=== PATIENT | female | born 1965 | race Caucasian/White ===

== ENCOUNTER → 2024-03-27 14:17 | Outpatient (REF) | payer SELFPAY | LOC: RAD 14:17 | PROVIDERS: ATTENDING PHYSICIAN Internal Medicine | DX: E78.01 Familial hypercholesterolemia (principal); R91.8 Other nonspecific abnormal finding of lung field | CPT/HCPCS: 75571 ==

== ENCOUNTER → 2024-04-23 06:53 | Outpatient (REF) | payer OTHER, SELFPAY | LOC: RSP 06:53 | PROVIDERS: ATTENDING PHYSICIAN Internal Medicine; FAMILY PHYSICIAN Family Medicine | DX: J18.9 Pneumonia, unspecified organism (principal); R91.8 Other nonspecific abnormal finding of lung field | CPT/HCPCS: 94727; 94729; 88738; 94010 ==

== ENCOUNTER 2025-04-16 09:29 | Emergency (ER) | payer OTHER, SELFPAY ==
--- NOTE | 2025-04-16 09:35 | ED.GENMED ---
History of Present Illness
General
Chief Complaint: Blood Pressure Problem
Time Seen by Provider: 04/16/25 09:35
History of Present Illness
History of Present Illness:
TIME OF INITIAL ENCOUNTER: 9:35 AM
HPI: The patient comes in due to concerns of high blood pressure readings. At home her blood pressure readings were over 200. She has no specific symptoms other than some left lateral neck discomfort. She has no chest pain. She is to be on blood
pressure medication but no longer takes it citing that she does not want to be on blood pressure medication and switch to herbal medication. She has no headache or lightheadedness. She has no neurologic symptoms.
EXAM:
GENERAL: Well appearing in no distress, she is hypertensive
HEENT: Moist oral mucosa
CARDIOVASCULAR: No murmurs, normal heart rate, regular rhythm, No chest wall tenderness
PULMONARY: No respiratory distress, breath sounds are clear and equal
ABDOMEN: Soft with no peritoneal signs, no tenderness
NEUROLOGIC: Excellent strength all extremities, no coordination deficits
PSYCHIATRIC: Appropriate mental status, normal insight and judgement
EXTREMITIES: Nontender, no edema, moves all extremities equally
SKIN: No rash, no lesions
NUMBER AND COMPLEXITY OF PROBLEMS ADDRESSED AT THE ENCOUNTER
� Chronic conditions affecting care: High blood pressure, asthma
� Acute Exacerbation and/or Progression of Chronic Illness: This is an acute problem
� Differential Diagnosis includes: Untreated high blood pressure, medication noncompliance, essential hypertension, kidney disease
AMOUNT AND/OR COMPLEXITY OF DATA TO BE REVIEWED AND ANALYZED
� I performed an independent evaluation of and my interpretation is:
EKG: Baseline artifact, rate of 85, nonspecific ST abnormality
CT:
X-rays:
Laboratory Studies: CBC and chemistries unremarkable. Troponin less than 0.012
Other:
� Review of other/old records: The patient had PFTs which were normal 1 year ago.
� Clinical information was obtained by an independent historian:
� Prescriptions/Medications Considered but not given:
� Further testing considered but not performed:
RISK OF COMPLICATIONS AND/OR MORBIDITY OR MORTALITY OF PATIENT MANAGEMENT
� Social determinants of health affecting care: Lives at home
� Discussion with other providers:
� Escalation of care including admission/observation vs risk of discharge considered: I personally took manual blood pressure and was confirmed to be 230/130. However the patient has minimal symptoms currently. She is
well-appearing. She stopped taking her amlodipine and HCTZ citing side effects including dizziness. Her blood pressure has improved after IV labetalol was given. Will start losartan.
ANY OTHER UPDATES:
Past History
Past History
ED Past Medical History: Asthma and HTN
Social History
Tobacco: Non-smoker
Personal:
Living: with family
Family History
Family History: CAD
Phy Exam
Physical Exam
Physical Exam:
See HPI
Course
Orders/Labs/Results
Orders:
Orders
04/16/25 09:33
ECG [Electrocardiogram (*1)] Urgent
Reason for Study: Chest Pain
Other Reason for Exam: L sided neck pain
04/16/25 09:34
EKG- Treatment ONCE
04/16/25 09:45
EKG- Treatment ONCE
Labetalol HCl [Trandate] 10 mg IV NOW STA
04/16/25 10:05
Complete Blood Count/With Diff Urgent
Comprehensive Metabolic Panel Urgent
Troponin I Urgent
04/16/25 10:38
Losartan [Cozaar] 50 mg PO NOW STA
Abnormal Lab Results
04/16/25
10:05
MPV 12.0 H fL
(7.4-10.4)
Absolute Monos (auto) 0.7 H 10^3/uL
(0.1-0.6)
Chloride 110 H mmol/L
(98-107)
Glucose 124 H mg/dl
(70-99)
Total Protein 8.4 H g/dl
(6.3-8.2)
04/16/25 10:05
04/16/25 10:05
Vital Signs
Blood pressure: 230/130 (manual)
Initial and Last Documented VS:
Initial Vital Signs
Temp Pulse Resp Pulse Ox
37.2 C 89 16 99
04/16/25 09:30 04/16/25 09:30 04/16/25 09:30 04/16/25 09:30
Last Documented Vital Signs
Temp Pulse Resp BP Pulse Ox
37.2 C 67 14 187/105 97
04/16/25 09:30 04/16/25 12:02 04/16/25 12:02 04/16/25 12:02 04/16/25 12:02
*Critical Care Note
Total Time (30-74mins, 75-104mins- exclusive of procedures): Not Applicable
ED Attending Note
-
Portions of this chart may have been created with voice recognition software.� Occasional wrong word or��sound alike� substitutions may have occurred due to the inherent limitations of voice recognition software.
Discharge Plan
Departure
Patient Disposition: Home (Routine Discharge)
Date of Disposition: 04/16/25
Time of Disposition: 10:55
Patient with high blood pressure during this ER visit?: Yes
Discharge Problem:
High blood pressure
Instructions: High Blood Pressure (DC), BLOOD PRESSURE
Prescriptions:
New
losartan 50 mg tablet
50 mg PO DAILY Qty: 30 0RF
No Action
ibuprofen [Advil Liqui-Gel] 200 MG capsule
400 mg PO PRN PRN (Reason: pain)
Blood Pressure Meds
1 tab PO DAILY
Patient Comments:
pt doesn't know the names
Norvasc:
1 tab PO DAILY
Referrals:
Simone Klein MD [Family Provider] -
Activity Restrictions/Additional Instructions:
Your initial manual blood pressure was 230/130. I strongly recommend that you resume blood pressure medication. We gave you an IV dose of labetalol 10 mg which brought the blood pressure down to 187 systolic. I do not want to abruptly drop your
blood pressure all the way back down to normal as that can also be dangerous. I am sending a prescription for losartan to your pharmacy. Next dose tomorrow. The maximum dose of losartan is 100 mg daily and I am sending a prescription for 50 mg
tablets. You could take 2 of the tablets if your blood pressure is markedly elevated (top number above 180).
Interventions
Interventions:
*Risk Screen - Suicide Last Done: 04/16/25 09:58
*General Assessment Last Done: 04/16/25 09:58
*Neglect/Abuse Screening Last Done: 04/16/25 09:58
*ED- Fall Risk Assessment Last Done: 04/16/25 09:58
*ED COVID-19 Vaccine History Last Done: 04/16/25 09:58
*Nursing Disposition Last Done: 04/16/25 12:02
ED- Cardiac Assessment Last Done: 04/16/25 10:38
ED- Neurological Assessment Last Done: 04/16/25 10:37
ED- Pulmonary Assessment Last Done: 04/16/25 10:37
Discharge Date and Time
Discharge Date/Time: 04/16/25 12:05
Print Language: ARABIC
[2025-04-16 09:49] VITALS: BMI 33.4
[2025-04-16 10:00] VITALS: BP 236/126
[2025-04-16] MEDS: TRANDATE 10 MG IV (10:01)
[2025-04-16 10:18] LABS: % Eosinophils 2.7 % (0-6); % Immature Granulocytes 0.5 % (0-0.5); % Lymphocytes 24.1 % (20.5-51.1); % Monocytes 9.2 % (1.7-9.3); % Neutrophils 62.5 % (42.2-75.2); Absolute Basophils 0.1 10^3/uL (0-0.2); Absolute Eosinophils 0.2 10^3/uL (0-0.7); Absolute Lymphocytes 1.9 10^3/uL (1.2-3.4); Absolute Monocytes 0.7 10^3/uL (0.1-0.6); Hematocrit 43.7 % (37.0-47.0); Hemoglobin 14.8 g/dL (12.0-16.0); Mean Corp Hgb Conc. 33.9 g/dL (33.0-37.0); Mean Corpuscular Hgb 29.4 pg (27.0-31.0); Mean Corpuscular Volume 86.9 fL (81.0-99.0); Nucleated Red Blood Cells % 0 %; Platelet Count 263 10^3/uL (130-400); Red Blood Cell Count 5.03 10^6/uL (4.20-5.40); Red Cell Dist. Width 13.2 % (11.5-14.5)
[2025-04-16 10:29] VITALS: BP 187/104
[2025-04-16 10:34] LABS: ALT (SGPT) 28 U/L (0-35); AST (SGOT) 24 U/L (14-36); Alkaline Phosphatase 70 U/L (38-126); Blood Urea Nitrogen 16 mg/dl (7-17); Calcium 10.2 mg/dl (8.4-10.2); Carbon Dioxide 26 mmol/L (22-30); Chloride 110 mmol/L (98-107); Estimated Creatinine Clearance 86 ml/min; Glucose 124 mg/dl (70-99); Potassium 4.5 mmol/L (3.5-5.1); Sodium 145 mmol/L (135-145); Total Bilirubin 1.1 mg/dl (0.2-1.3); Total Protein 8.4 g/dl (6.3-8.2); eGFR > 60.00
[2025-04-16 10:45] LABS: Troponin I < 0.012 ng/ml
[2025-04-16] MEDS: COZAAR 50 MG PO (11:36)
[2025-04-16 12:02] VITALS: BP 187/105
== END 2025-04-16 12:05 | disposition home or self-care (01) ==
LOC: EMR 09:29
PROVIDERS: EMERGENCY PHYSICIAN Emergency Medicine; FAMILY PHYSICIAN Family Medicine
DX: I10 Essential (primary) hypertension (principal); M54.2 Cervicalgia; J45.909 Unspecified asthma, uncomplicated; T46.1X6A Underdosing of calcium-channel blockers, initial encounter; Z91.128 Patient's intentional underdosing of medication regimen for other reason
CPT/HCPCS: 99284; 96374; 80053; 84484; 85025; 93005